=== PATIENT | male | born 1990 ===

== ENCOUNTER 2019-09-18 21:28 | Emergency (ER) | payer OTHER ==
[2019-09-18] MEDS ORDERED: MORPHINE 4 MG/ML SYR ONE (22:02)
[2019-09-18] MEDS ORDERED: ONDANSETRON 4 MG/2 ML VIAL ONE (22:02)
[2019-09-18 22:20] LABS: Absolute Lymphocytes (CBC) 2.4 K/uL (0.7-4.9); Basophils % 0.3 % (0-1.3); Lymphocytes % 31.2 % (15.3-44.8); MPV 10.8 fL (7.6-11.3); RBC Red Blood Cell Count 4.96 M/uL (4.33-5.43)
[2019-09-18 22:34] LABS: Albumin 4.1 g/dL (3.4-5.0); Bilirubin Direct 0.2 mg/dL (0-0.2); Bilirubin Total 0.6 mg/dL (0.2-1.0); Potassium 3.8 mmol/L (3.5-5.1); Protein, Total 8.2 g/dL (6.4-8.2)
[2019-09-18] MEDS ORDERED: NA CHLORIDE 0.9% 1,000 ML ONE (23:47)
--- NOTE | 2019-09-18 23:52 | ER ---
Nurse's Notes [facility] Name: Rafael Velez Age: 29 yrs Sex: Male : 1990 Arrival Date: 09/18/2019 Time: 21:31 Bed 18 Private MD: Diagnosis: Constipation;Dehydration Presentation: 09/18 21:34 Presenting complaint: Patient states: Abdominal pain, nausea, constipation, and aj1 decreased urine output for the past 3 days. Transition of care: patient was not received from another setting of care. Onset of symptoms was September 18, 2019. Risk Assessment: Do you want to hurt yourself or someone else? Patient reports no desire to harm self or others. Initial Sepsis Screen: Does the patient meet any 2 criteria? No. Patient's initial sepsis screen is negative. Does the patient have a suspected source of infection? No. Patient's initial sepsis screen is negative. Care prior to arrival: None. 21:34 Method Of Arrival: Ambulatory aj1 21:34 Acuity: MARIEL 3 aj1 Triage Assessment: 21:36 General: Appears in no apparent distress. comfortable, Behavior is calm, cooperative, aj1 appropriate for age. Pain: Complains of pain in right lower quadrant and left lower quadrant Pain currently is 6 out of 10 on a pain scale. Neuro: Level of Consciousness is awake, alert, obeys commands. Cardiovascular: Patient's skin is warm and dry. Respiratory: Airway is patent Respiratory effort is even, unlabored, Respiratory pattern is regular, symmetrical. GI: Reports lower abdominal pain, constipation, nausea, vomiting, Patient currently denies diarrhea. Historical: - Allergies: 21:36 No Known Allergies; aj1 - Home Meds: 21:36 None [Active]; aj1 - PMHx: 21:36 None; aj1 - PSHx: 21:36 None; aj1 - Immunization history:: Flu vaccine is not up to date. - Social history:: Smoking status: Patient/guardian denies using tobacco. - Ebola Screening: : Patient denies travel to an Ebola-affected area in the 21 days before illness onset. Screenin:40 Abuse screen: Denies threats or abuse. Nutritional screening: No deficits noted. tr5 Tuberculosis screening: No symptoms or risk factors identified. Fall Risk None identified. Assessment: 21:40 General: Appears in no apparent distress. Behavior is calm, cooperative. Pain: tr5 Complains of pain in abdomen. Neuro: Level of Consciousness is awake, alert, obeys commands. Cardiovascular: Heart tones present Capillary refill < 3 seconds Pulses are all present. Respiratory: Airway is patent Respiratory effort is even, unlabored, Respiratory pattern is regular, symmetrical. GI: Bowel sounds present X 4 quads. Abd is soft and non tender X 4 quads. : Reports inability to void. EENT: No signs and/or symptoms were reported regarding the EENT system. Derm: No signs and/or symptoms reported regarding the dermatologic system. Musculoskeletal: No signs and/or symptoms reported regarding the musculoskeletal system. Vital Signs: 21:36 BP 143 / 78; Pulse 53; Resp 18; Temp 98.3; Pulse Ox 100% on R/A; Weight 90.72 kg (R); aj1 Height 6 ft. 0 in. (182.88 cm) (R); Pain 6/10; 21:36 Body Mass Index 27.12 (90.72 kg, 182.88 cm) aj1 ED Course: 21:31 Patient arrived in ED. jg7 21:36 Triage completed. aj1 21:36 Arm band placed on Patient placed in an exam room. aj1 21:40 Bed in low position. Call light in reach. Side rails up X 1. tr5 21:41 Hardik Monterroso PA is PHCP. jr8 21:41 Ike Peterson MD is Attending Physician. jr8 21:46 Zeke Marti, WILBER is Primary Nurse. tr5 22:25 Basic Metabolic Panel Sent. jb5 22:25 Creatinine for Radiology Sent. jb5 22:25 Hepatic Function Sent. jb5 22:25 Lipase Sent. jb5 22:53 CT Abd/Pelvis - IV Contrast Only In Process Unspecified. EDMS 09/19 00:18 No provider procedures requiring assistance completed. IV discontinued. tr5 Administered Medications: 09/18 22:03 Drug: morphine 4 mg Route: IVP; Site: right antecubital; tr5 22:37 Follow up: Response: Pain is decreased tr5 22:04 Drug: Zofran 4 mg Route: IVP; Site: right antecubital; tr5 22:38 Follow up: Response: Pain is decreased tr5 23:00 Drug: NS 0.9% 1000 ml Route: IV; Rate: 1000 ml; Site: right antecubital; tr5 Outcome: 23:51 Discharge ordered by MD. montalvo 09/19 00:18 Discharged to home ambulatory. tr5 00:38 Condition: stable tr5 00:38 Discharge instructions given to patient, Instructed on discharge instructions, follow up and referral plans. medication usage, Demonstrated understanding of instructions, follow-up care, medications, Prescriptions given X 1. 00:42 Patient left the ED. tr5 Signatures: Dispatcher [employer] EDShannan Diehl RN RN aj1 Hardik Monterroso PA PA jr8 Makeda Cadena jb5 Zeke Marti RN RN tr5 Eloisa Phan
--- NOTE | 2019-09-18 23:52 | EDPHYS ---
Physician Documentation [facility] Name: Rafael Velez Age: 29 yrs Sex: Male : 1990 Arrival Date: 09/18/2019 Time: 21:31 Bed 18 Private MD: ED Physician Ike Peterson HPI: 09/18 21:47 This 29 yrs old Male presents to ER via Ambulatory with complaints of Abdominal Pain, jr8 Nausea. 21:47 The patient presents with abdominal pain in the lower abdomen. Onset: The jr8 symptoms/episode began/occurred acutely, today. The symptoms do not radiate. Associated signs and symptoms: Pertinent positives: constipation, nausea. The symptoms are described as sharp. Modifying factors: The symptoms are alleviated by nothing, the symptoms are aggravated by nothing. Severity of pain: At its worst the pain was moderate in the emergency department the pain is unchanged. The patient has not experienced similar symptoms in the past. The patient has not recently seen a physician. Historical: - Allergies: 21:36 No Known Allergies; aj1 - Home Meds: 21:36 None [Active]; aj1 - PMHx: 21:36 None; aj1 - PSHx: 21:36 None; aj1 - Immunization history:: Flu vaccine is not up to date. - Social history:: Smoking status: Patient/guardian denies using tobacco. - Ebola Screening: : Patient denies travel to an Ebola-affected area in the 21 days before illness onset. ROS: 21:47 Constitutional: Negative for fever, chills, and weight loss. jr8 21:47 Abdomen/GI: Positive for abdominal pain, nausea, constipation, abdominal distension. 21:47 All other systems are negative. Exam: 21:47 Eyes: Pupils equal round and reactive to light, extra-ocular motions intact. Lids and jr8 lashes normal. Conjunctiva and sclera are non-icteric and not injected. Cornea within normal limits. Periorbital areas with no swelling, redness, or edema. ENT: Nares patent. No nasal discharge, no septal abnormalities noted. Tympanic membranes are normal and external auditory canals are clear. Oropharynx with no redness, swelling, or masses, exudates, or evidence of obstruction, uvula midline. Mucous membranes moist. Neck: Trachea midline, no thyromegaly or masses palpated, and no cervical lymphadenopathy. Supple, full range of motion without nuchal rigidity, or vertebral point tenderness. No Meningismus. Cardiovascular: Regular rate and rhythm with a normal S1 and S2. No gallops, murmurs, or rubs. Normal PMI, no JVD. No pulse deficits. Respiratory: Lungs have equal breath sounds bilaterally, clear to auscultation and percussion. No rales, rhonchi or wheezes noted. No increased work of breathing, no retractions or nasal flaring. Back: No spinal tenderness. No costovertebral tenderness. Full range of motion. Skin: Warm, dry with normal turgor. Normal color with no rashes, no lesions, and no evidence of cellulitis. MS/ Extremity: Pulses equal, no cyanosis. Neurovascular intact. Full, normal range of motion. Neuro: Awake and alert, GCS 15, oriented to person, place, time, and situation. Cranial nerves II-XII grossly intact. Motor strength 5/5 in all extremities. Sensory grossly intact. Cerebellar exam normal. Normal gait. 21:47 Abdomen/GI: Inspection: abdomen appears normal, Bowel sounds: active, all quadrants, Palpation: soft, in all quadrants, moderate abdominal tenderness, in the suprapubic area, right lower quadrant and left lower quadrant, mass, is not appreciated, rebound tenderness, is not appreciated, voluntary guarding, is not appreciated, involuntary guarding, is not appreciated, no appreciated organomegaly, Indicators: McBurney's point is not tender, Boykin's sign is negative, Rovsing's sign is negative, Liver: tenderness, is not appreciated. Vital Signs: 21:36 BP 143 / 78; Pulse 53; Resp 18; Temp 98.3; Pulse Ox 100% on R/A; Weight 90.72 kg (R); aj1 Height 6 ft. 0 in. (182.88 cm) (R); Pain 6/10; 21:36 Body Mass Index 27.12 (90.72 kg, 182.88 cm) aj1 MDM: 21:41 Patient medically screened. jr8 23:43 Data reviewed: vital signs, nurses notes, lab test result(s), radiologic studies, CT jr8 scan. Data interpreted: Pulse oximetry: on room air is 100 %. Interpretation: normal. Counseling: I had a detailed discussion with the patient and/or guardian regarding: the historical points, exam findings, and any diagnostic results supporting the discharge/admit diagnosis, lab results, radiology results, the need for outpatient follow up, a family practitioner, to return to the emergency department if symptoms worsen or persist or if there are any questions or concerns that arise at home. 09/18 21:41 Order name: Basic Metabolic Panel; Complete Time: 22:46 [facility] 09/18 21:41 Order name: CBC with Diff; Complete Time: 22:28 [facility] 09/18 21:41 Order name: Creatinine for Radiology; Complete Time: 22:28 [facility] 09/18 21:41 Order name: Hepatic Function; Complete Time: 22:46 [facility] 09/18 21:41 Order name: Lipase; Complete Time: 22:46 [facility] 09/19 00:24 Order name: Urine Dipstick--Ancillary (enter results) [facility] 09/18 21:41 Order name: IV Saline Lock; Complete Time: 21:56 [facility] 09/18 21:41 Order name: Labs collected and sent; Complete Time: 21:57 [facility] 09/18 22:11 Order name: CT Abd/Pelvis - IV Contrast Only [facility] 09/18 22:48 Order name: Urine Dipstick-Ancillary (obtain specimen); Complete Time: 00:05 [facility] Administered Medications: 22:03 Drug: morphine 4 mg Route: IVP; Site: right antecubital; tr5 22:37 Follow up: Response: Pain is decreased tr5 22:04 Drug: Zofran 4 mg Route: IVP; Site: right antecubital; tr5 22:38 Follow up: Response: Pain is decreased tr5 23:00 Drug: NS 0.9% 1000 ml Route: IV; Rate: 1000 ml; Site: right antecubital; tr5 Disposition: 09/19 01:22 Co-signature as Attending Physician, Ike Peterson MD. rn Disposition: 09/18/19 23:51 Discharged to Home. Impression: Constipation, Dehydration. - Condition is Stable. - Discharge Instructions: Constipation, Adult, Dehydration, Adult. - Prescriptions for Miralax 17 gram/dose Oral - take 1 packet by ORAL route once daily dilute powder in 8 ounces of water or juice; 1 box. - Medication Reconciliation Form, Thank You Letter, Antibiotic Education, Prescription Opioid Use form. - Follow up: Private Physician; When: 2 - 3 days; Reason: Recheck today's complaints, Continuance of care, Re-evaluation by your physician. - Problem is new. - Symptoms have improved. Signatures: Dispatcher [employer] Shannan Shannon RN RN aj1 Ike Peterson MD MD rn Roszak, Josh, PA PA jr8 Zeke Marti RN RN tr5 Corrections: (The following items were deleted from the chart) 00:42 09/18 23:51 09/18/2019 23:51 Discharged to Home. Impression: Constipation; Dehydration. tr5 Condition is Stable. Forms are Medication Reconciliation Form, Thank You Letter, Antibiotic Education, Prescription Opioid Use. Follow up: Private Physician; When: 2 - 3 days; Reason: Recheck today's complaints, Continuance of care, Re-evaluation by your physician. Problem is new. Symptoms have improved. jr8
[2019-09-19 00:56] LABS: Urine Blood NEGATIVE (NEG); Urine Glucose NEGATIVE (NEG); Urine Protein NEGATIVE (NEG); Urine Specific Gravity 1.025 (1.005-1.030)
[2019-09-19 03:46] VITALS: BP 143/78; TEMP 98.3; O2SAT 100
--- NOTE | 2019-09-19 12:23 | RAD REPORT ---
EXAM DESCRIPTION: CT Abdomen and Pelvis With Intravenous Contrast CLINICAL HISTORY: The patient is 29 years old and is Male; ABD PAIN TECHNIQUE: Axial computed tomography images of the abdomen and pelvis with intravenous contrast. S agittal and coronal reformatted images were created and reviewed. This CT exam was performed using one or more of the following dose reduction techniques: automated exposure control, adjustment of t he mA and/or kV according to patient size, and/or use of iterative reconstruction technique. COMPARISON: None. FINDINGS: LUNG BASES: Lung bases are clear. Minimal dependent subsegmental atelectasis. HEART: Visualized heart is normal. ABDOMEN: LIVER: Unremarkable. No mass. GALLBLADDER AND BILE DUCTS: Unremarkable. No calcified stones. No ductal dilation. PANCREAS: Unremarkable. No mass. No ductal dilation. SPLEEN: Unremarkable. No splenomegaly. ADRENALS: Unremarkable. No mass. KIDNEYS AND URETERS: 1.5 cm left renal cyst. No hydronephrosis. STOMACH AND BOWEL: Unremarkable. No obstruction. No mucosal thickening. PELVIS: APPENDIX: The appendix is seen and is within normal limits. BLADDER: Unremarkable. No mass. REPRODUCTIVE: Unremarkable as visualized. ABDOMEN and PELVIS: INTRAPERITONEAL SPACE: Small fluid-filled hiatal hernia. No free air. BONES/JOINTS: Straightening of lumbar lordosis. No acute fracture. No dislocation. SOFT TISSUES: Small fat-containing umbilical hernia. VASCULATURE: Unremarkable. No abdominal aortic aneurysm. LYMPH NODES: Unremarkable. No enlarged lymph nodes. IMPRESSION: 1. No acute abdominal or pelvic abnormality. 2. 1.5 cm left renal cyst. 3. Small fluid-filled hiatal hernia. Electronically signed by: Julio Ventura DO 09/18/2019 11:08 PM PAINT STOCK CLERK Due to temporary technical issues with the PACS/Fluency reporting system, reports are being signed by the in house radiologist as a courtesy to ensure prompt reporting. The interpreting radiologist is f ully responsible for the content of the report.
== END 2019-09-19 00:42 | disposition home or self-care (01) ==
LOC: ER 21:28
DX: E86.0 Dehydration (principal)
CPT/HCPCS: 85025; 80048; 36415; 80076; 81003; 83690; 74177; 96375; 96374; 99284; Q9967; J7030; J2405